=== PATIENT | female | born 1965 | race Caucasian/White ===

== ENCOUNTER 2024-01-15 15:06 | Outpatient (CLI) | payer BC, SELFPAY ==
--- NOTE | 2024-01-15 15:18 | XR_ITS ---
WS: [id number] XR lumbar spine f/e only [id number] REASON FOR EXAM: vertebrogenic low back pain FINDINGS: Normal lordosis. No focal vertebral body abnormality. Mild vertebral body osteophytosis L1-S1. Prominent osteophyte po steriorly from the inferior endplate of L3 which projects over the neural foramina however the exact relation to the spinal canal is not demonstrated on these limited views. Mild narrowing of the disc spaces L1-2 L5. No significant listhesis in the neutral position. No significant vertebral body movement with extension. XR/XR lumbar spine f/e only [id number] IMPRESSION: Mild changes of degenerative spondylosis as above.
== END 2024-01-15 15:07 | disposition home or self-care (01) ==
PROVIDERS: PCP Nurse Practitioner Family; Visit Provider Nurse Practitioner
DX: M47.896 Other spondylosis, lumbar region (principal)
CPT/HCPCS: 72120

== ENCOUNTER 2024-03-13 09:58 | Outpatient (CLI) | payer BC, SELFPAY ==
--- NOTE | 2024-03-13 10:01 | MM_ITS ---
WS: [id number] BILATERAL SCREENING DIGITAL TOMOSYNTHESIS MAMMOGRAM WITH CAD HISTORY: SCREENING COMPARISON: None available. Bilateral CC and MLO views with tomosynthesis and synthetic mammography submitted. Computer aided det ection analyzed. Breast composition: There are scattered areas of fibroglandular density. No suspicious masses, microc alcifications or architectural distortion. Benign calcifications central RIGHT breast. MM/MM scr BI tomosynthesis [id number] IMPRESSION: BI-RADS: 2 - Benign. FOLLOW UP: 1 Year Follow-up
== END 2024-03-13 09:59 | disposition home or self-care (01) ==
LOC: RAD 09:59
PROVIDERS: PCP Nurse Practitioner Family; Visit Provider Nurse Practitioner Family
DX: Z12.31 Encounter for screening mammogram for malignant neoplasm of breast (principal); R92.323 Mammographic fibroglandular density, bilateral breasts; R92.1 Mammographic calcification found on diagnostic imaging of breast
CPT/HCPCS: 77063; 77067

== ENCOUNTER 2024-04-24 08:53 | Outpatient (CLI) | payer BC, MEDICAID, SELFPAY ==
--- NOTE | 2024-04-24 09:01 | MR_ITS ---
WS: [id number] MRI LUMBAR SPINE NONCONTRAST HISTORY: VERTEBROGENIC LOW BACK PAIN COMPARISON: None available. TECHNIQUE: Sagittal and axial multisequence imaging is submitted. Slight increase in thoracic kyphosis. Straightening of the normal lumbar lordosis. Disc spaces are very slightly narrowed and desiccated. Small hypertrophic osteophytes along the verte bral body endplates. No marrow edema or fracture. Conus terminates normally at L1-2 disc level. T12-L1: Moderate size central disc protrusion with slight contact on the traversing LEFT L1 nerve bobby t. No stenosis. L1-L2: Diffuse mild annular disc bulging with a small LEFT foraminal disc protrusion. Mild bilateral foraminal stenosis. Mild facet arthritis. L2-L3: Mild annular disc bulging with a LEFT foraminal disc protrusion. Bilateral facet joint arthrit is, LEFT greater than RIGHT. Mild RIGHT and mild to moderate LEFT foraminal stenosis. L3-L4: Diffuse annular disc bulge with a moderate central disc protrusion with annular fissure and sm aller bilateral foraminal protrusions. Mild osteophytic ridging. There is disc encroachment upon the L3 and L4 nerve roots. Greater contact involving the LEFT exiting L3 nerve root. Moderate bilateral f acet joint and ligamentum flavum hypertrophy. L4-L5: Mild annular disc bulging with disc encroachment into the foramina. Bilateral facet joint arth ropathy. Mild bilateral foraminal stenosis. L5-S1: Mild annular disc bulging with slight disc contact on the LEFT S1 nerve root. Mild bilateral f acet arthritis. Minimal foraminal stenosis. LEFT renal cyst measures 4.0 x 4.0 cm. Cyst is incompletely visualized. Smaller cyst RIGHT kidney. MR/MR lumbar spine wo con* [id number] IMPRESSION: 1. Multilevel areas of disc protrusions and facet arthritis. 2. T12-L1: Moderate central disc protrusion contacting the traversing LEFT S1 nerve root. 3. L1-2: Mild bilateral foraminal stenosis with a small LEFT foraminal disc pr otrusion. 4. L2-3: Mild RIGHT with mild to moderate LEFT foraminal stenosis with a LEFT foraminal disc protrusion and facet arthritis. 5. L3-4: Central disc protrusion with annular fissure and smaller bilateral fo raminal disc protrusions. Disc encroachment upon the L3 and L4 nerve roots. 6. L4-5: Mild bilateral foraminal stenosis. 7. L5-S1: Mild bilateral foraminal stenosis with mild disc encroachment upon t he LEFT S1 nerve root.
== END 2024-04-24 08:54 | disposition home or self-care (01) ==
LOC: RAD 08:54
PROVIDERS: PCP Nurse Practitioner Family; Visit Provider Anesthesiology Pain Medicine
DX: M51.25 Other intervertebral disc displacement, thoracolumbar region (principal); M48.061 Spinal stenosis, lumbar region without neurogenic claudication; M51.26 Other intervertebral disc displacement, lumbar region; M47.816 Spondylosis without myelopathy or radiculopathy, lumbar region; M48.07 Spinal stenosis, lumbosacral region; R93.89 Abnormal findings on diagnostic imaging of other specified body structures
CPT/HCPCS: 72148